=== PATIENT | female | born 1945 | race Caucasian/White ===

== ENCOUNTER 2017-08-05 06:34 | Inpatient (IN) | payer BC, MEDICARE ==
[2017-08-05] MEDS ORDERED: DEXAMETHASONE 4 MG/ML 1 ML INJ (07:00)
[2017-08-05] MEDS ORDERED: SUCCINYLCHOLINE CHLORIDE 100 MG/5 ML SYG IV (07:00)
[2017-08-05] MEDS ORDERED: CEFAZOLIN 1 GM INJ (07:00)
[2017-08-05] MEDS ORDERED: ROCURONIUM 50 MG INJ ×3 (07:00→11:51)
[2017-08-05] MEDS ORDERED: hydrALAzine 20 MG INJ IV ×2 (07:30→15:30)
[2017-08-05] MEDS ORDERED: METOCLOPRAMIDE 10 MG INJ IV (07:30)
[2017-08-05] MEDS ORDERED: DIPHENHYDRAMINE 50 MG INJ IV (07:30)
[2017-08-05] MEDS ORDERED: LABETALOL HCL 20MG INJ IV (07:30)
[2017-08-05] MEDS ORDERED: FENTAnyl 50 MCG/ML VIAL IV (07:30)
[2017-08-05] MEDS ORDERED: ONDANSETRON 4 MG INJ IV (07:30)
[2017-08-05] MEDS ORDERED: LORAZEPAM 2 MG INJ IV (07:30)
[2017-08-05] MEDS ORDERED: PROCHLORPERAZINE 10 MG INJ IV (07:30)
[2017-08-05] MEDS ORDERED: EPHEDrine SULFATE 50 MG/5 ML SYG IV (07:30)
[2017-08-05] MEDS ORDERED: MEPERIDINE 25 MG INJ IV (07:30)
[2017-08-05] MEDS ORDERED: THROMBIN 5000 UNIT VIAL (07:40)
[2017-08-05] MEDS ORDERED: GELATIN SIZE 100 SPONGE (07:41)
[2017-08-05] MEDS ORDERED: MIDAZOLAM 1 MG/ML 2 ML INJ (07:45)
[2017-08-05] MEDS ORDERED: PROPOFOL 100 ML (07:57)
[2017-08-05] MEDS ORDERED: ACETAMINOPHEN 1000MG/100ML IV 100 ML (07:57)
[2017-08-05] MEDS ORDERED: PROPOFOL 20 ML (07:57)
[2017-08-05] MEDS ORDERED: NEOSTIGMINE 3 MG/3 ML SYRINGE (07:58)
[2017-08-05] MEDS ORDERED: GLYCOPYRROLATE 0.4 MG INJ (07:58)
[2017-08-05] MEDS ORDERED: LIDOCAINE 100 MG SYRINGE (07:58)
[2017-08-05] MEDS ORDERED: nitroGLYCerin 50 MG INJ (09:44)
[2017-08-05] MEDS ORDERED: METOPROLOL 5 MG INJ (09:50)
[2017-08-05] MEDS ORDERED: NITROGLYCERIN 50 MG in D5W 250 ML IV (10:00)
[2017-08-05] MEDS: NITROGLYCERIN 50 MG in D5W 250 ML IV (10:00)
[2017-08-05] MEDS: BUPIVACAINE 0.25% (MPF) 30 ML INJ (10:01)
[2017-08-05] MEDS: POLYMYXIN/BACITRACIN 1L IRRIG (10:01)
[2017-08-05] MEDS ORDERED: FENTAnyl 50 MCG/ML VIAL (10:03)
[2017-08-05] MEDS ORDERED: VANCOMYCIN 1 GM INJ (12:41)
[2017-08-05] MEDS ORDERED: ONDANSETRON 4 MG INJ (12:52)
[2017-08-05] MEDS ORDERED: METOCLOPRAMIDE 10 MG INJ (12:52)
[2017-08-05] MEDS ORDERED: ZOLPIDEM 5 MG TAB PO (13:30)
[2017-08-05] MEDS ORDERED: AL HYDROX/MG HYDROX/SIMETH 30 ML CUP PO (13:30)
[2017-08-05] MEDS ORDERED: ACETAMINOPHEN 325 MG TAB PO (13:30)
[2017-08-05] MEDS ORDERED: NALOXONE (0.4 MG/ML) INJ IV (13:30)
[2017-08-05] MEDS ORDERED: DIPHENHYDRAMINE 25 MG CAP PO (13:30)
[2017-08-05] MEDS ORDERED: BISACODYL 10 MG SUPP PR (13:30)
[2017-08-05] MEDS: CEFAZOLIN 1 GM/50 ML (PMX) 50 ML IVPB ×2 (14:13→21:44)
[2017-08-05] MEDS ORDERED: HYDROmorphONE (0.2 MG/ML) 10ML SYG IV (14:21)
[2017-08-05] MEDS: HYDROmorphONE (0.2 MG/ML) 10ML SYG IV (14:24)
[2017-08-05] MEDS: D5W-0.45 NACL + KCL 20 MEQ 1,000 ML IV ×2 (15:32→23:28)
[2017-08-05] MEDS: HYDROmorphONE 1 MG/ML SYG IV ×2 (16:37→21:39)
[2017-08-05 20:38] LABS: ADD UMIC YES; UR ASCORBIC ACID NEGATIVE (NEGATIVE); UR BILIRUBIN (Dip) NEGATIVE (NEGATIVE); UR BLOOD (Dip) 1+ mg/dL (NEGATIVE); UR CLARITY CLEAR (CLEAR); UR COLOR YELLOW (YELLOW); UR GLUCOSE (Dip) NEGATIVE (NEGATIVE); UR KETONES (Dip) NEGATIVE (NEGATIVE); UR LEUKOCYTE ESTERASE (Dip) NEGATIVE Leu/ul (NEGATIVE); UR NITRITE (Dip) NEGATIVE (NEGATIVE); UR RBC 6 /HPF (0-5); UR TOTAL PROTEIN (Dip) 1+ mg/dl (NEGATIVE); UR UROBILINOGEN (Dip) NEGATIVE (NEGATIVE); UR WBC 1 /HPF (0-5)
[2017-08-05] MEDS: HYDROXYCHLOROQUINE 200 MG TAB PO (21:00)
[2017-08-05] MEDS: DOCUSATE SODIUM 100 MG CAP PO (21:36)
[2017-08-05] MEDS: HYDROCHLOROTHIAZIDE 12.5 MG CAP PO (21:50)
[2017-08-06] MEDS: HYDROmorphONE 0.5 MG/0.5 ML SYG IV ×2 (02:06→10:18)
[2017-08-06] MEDS: D5W-0.45 NACL + KCL 20 MEQ 1,000 ML IV (02:11)
[2017-08-06] MEDS: HYDROmorphONE 1 MG/ML SYG IV ×3 (04:23→18:18)
[2017-08-06] MEDS: CEFAZOLIN 1 GM/50 ML (PMX) 50 ML IVPB (05:46)
[2017-08-06 06:19] LABS: ADD MAN DIFF? NO
[2017-08-06 06:35] LABS: BASOPHILS % 0.1 % (0.0-2.0); EOSINOPHILS # 0.1 10^3/ul (0.0-0.5); EOSINOPHILS % 0.8 % (0.0-7.0); HEMATOCRIT 32.9 % (37.0-47.0); HEMOGLOBIN 10.8 g/dl (12.0-16.0); LYMPHOCYTES # 1.2 10^3/ul (0.8-2.9); LYMPHOCYTES % 16.7 % (15.0-51.0); MEAN CORPUSCULAR HEMOGLOBIN 30.3 pg (29.0-33.0); MEAN CORPUSCULAR HGB CONC 32.8 g/dl (32.0-37.0); MEAN CORPUSCULAR VOLUME 92.4 fl (82.0-101.0); MEAN PLATELET VOLUME 11.8 fl (7.4-10.4); MONOCYTE # 0.6 10^3/ul (0.3-0.9); MONOCYTES % 8.4 % (0.0-11.0); NEUTROPHIL # 5.3 10^3/ul (1.6-7.5); NEUTROPHILS % 73.7 % (39.0-77.0); PLATELET COUNT 207 10^3/UL (140-415); RED BLOOD COUNT 3.56 10^6/ul (4.20-5.40); RED CELL DISTRIBUTION WIDTH 13.4 % (11.5-14.5)
[2017-08-06 06:35] LABS: WHITE BLOOD COUNT 7.3 10^3/ul (4.8-10.8)
[2017-08-06 07:23] LABS: ANION GAP 12 (8-16); BLOOD UREA NITROGEN 6 mg/dl (7-20); CALCIUM 8.9 mg/dl (8.4-10.2); CARBON DIOXIDE 30 mmol/L (21-31); CHLORIDE 103 mmol/L (97-110); CREATININE 0.55 mg/dl (0.44-1.00); GLUCOSE 117 mg/dl (70-220); POTASSIUM 3.8 mmol/L (3.5-5.1); SODIUM 141 mmol/L (135-144)
[2017-08-06 07:24] LABS: PHOSPHORUS 3.6 mg/dl (2.5-4.9)
[2017-08-06 07:24] LABS: MAGNESIUM 1.8 mg/dl (1.7-2.5)
[2017-08-06] MEDS: HYDROCODONE/APAP (5/325) TAB PO ×3 (07:47→22:14)
[2017-08-06] MEDS: HYDROCHLOROTHIAZIDE 12.5 MG CAP PO (08:49)
[2017-08-06] MEDS: DOCUSATE SODIUM 100 MG CAP PO ×2 (08:50→20:44)
[2017-08-06] MEDS: ONDANSETRON 4 MG INJ IV (10:16)
[2017-08-06] MEDS: HYDROXYCHLOROQUINE 200 MG TAB PO (20:48)
[2017-08-07] MEDS: HYDROCODONE/APAP (5/325) TAB PO ×5 (02:08→15:47)
[2017-08-07] MEDS: MAGNESIUM HYDROXIDE 30ML CUP PO (07:14)
[2017-08-07] MEDS: HYDROCHLOROTHIAZIDE 12.5 MG CAP PO (08:40)
[2017-08-07] MEDS: DOCUSATE SODIUM 100 MG CAP PO (08:40)
== END 2017-08-07 16:35 | disposition home health service (06) | DRG 519 ==
LOC: REC 06:34 → MS1 15:05
PROC: 0PH304Z Insertion of Internal Fixation Device into Cervical Vertebra, Open Approach (ICD-10-PCS; principal; 2017-08-05 08:00)
PROC: 00NW0ZZ Release Cervical Spinal Cord, Open Approach (ICD-10-PCS; 2017-08-05 08:00)
PROC: 4A11X4G Monitoring of Peripheral Nervous Electrical Activity, Intraoperative, External Approach (ICD-10-PCS; 2017-08-05 08:00)
DX: M48.02 Spinal stenosis, cervical region (principal); G95.29 Other cord compression; M32.9 Systemic lupus erythematosus, unspecified; M06.9 Rheumatoid arthritis, unspecified; I10 Essential (primary) hypertension; M54.12 Radiculopathy, cervical region
CPT/HCPCS: 72040; 72100; 80048; 81001; 83735; 84100; 84443; 85025; 87086; 93005; 97116; 97163; 97530